=== PATIENT | male | born 2000 | race Caucasian/White ===

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

== ENCOUNTER 2023-02-27 15:18 | Outpatient (CLI) | payer OTHER, SELFPAY ==
--- NOTE | ~2023-02-27 | XR_ITS ---
EXAMINATION: [id number], XR sternum min 2V DATE: 02/27/2023 15:54 INDICATION: Acquired deformity of the chest and ribs TECHNIQUE: 1. A frontal inspiratory view of the chest and 3 views of the left ribs were obtained. 2. PA and lateral views of the sternum were obtained. COMPARISON: Chest radiograph dated FINDINGS: No rib or sternal fractures identified. Lungs are clear with no focal airspace opacities, pulmonary e santana, pleural effusion or pneumothorax. Cardiomediastinal silhouette is normal. No evident presternal or retrosternal soft tissue swelling. IMPRESSION: 1. Normal chest, sternal and left rib radiographs. Reviewed, dictated and finalized at location A. MOTIVE GLASS SPECIALIST IMPRESSION: 1. Normal chest, sternal and left rib radiographs.
== END 2023-02-27 15:19 ==
PROVIDERS: PCP Physician Assistant; Visit Provider Physician Assistant
DX: M95.4 Acquired deformity of chest and rib (principal)
CPT/HCPCS: 71101; 71120